=== PATIENT | male | born 1955 | race Caucasian/White ===

== ENCOUNTER 2017-09-30 11:38 | Day surgery (SDC) | payer OTHER ==
[2017-09-30] MEDS ORDERED: LR 1,000 ML IV ONE (11:53)
[2017-09-30] MEDS ORDERED: LIDOCAINE 1% 2 ML INJ ID PRN (11:53)
[2017-09-30] MEDS ORDERED: ceFAZolin 2 GM/SWFI 2 GM/20 ML SYR IVP ONE (11:56)
--- NOTE | 2017-09-30 11:56 | PDHPUP ---
History & Physical Update H&P update statement: This history and physical update is based on an assessment of the patient which was completed after admission or registration (within 24 hours), but prior to the surgery/procedure. Reviewed H&P update: no change in patient's condition since H&P completed H&P changes: no changes
[2017-09-30] MEDS ORDERED: ceFAZolin 2 GM/DEXTROSE 100 ML IV ONE (12:00)
[2017-09-30] MEDS ORDERED: LIDOCAINE 2% 100 MG/5 ML SYR ONE (12:09)
[2017-09-30] MEDS ORDERED: DEXAMETHASONE 4 MG/ML VIAL ONE ×2 (12:09→15:53)
[2017-09-30] MEDS ORDERED: LIDOCAINE 1% 300 MG/30 ML SDV ONE (12:09)
[2017-09-30] MEDS ORDERED: ROPIVACAINE HCL 150 MG/30 ML INJ ONE (12:09)
[2017-09-30] MEDS ORDERED: BACITRACIN 50,000 UNITS/10 ML SYR IRR ONE ×2 (12:10→16:32)
[2017-09-30] MEDS ORDERED: BUPIVACAINE 0.25% 30 ML SDV ONE (12:16)
[2017-09-30] MEDS ORDERED: MIDAZOLAM 2 MG/2 ML VIAL ONE ×2 (14:14→14:40)
[2017-09-30] MEDS ORDERED: MIDAZOLAM 2 MG/2 ML VIAL IVP ONE (14:25)
--- NOTE | 2017-09-30 14:25 | PDANEPAE ---
ANE Past Medical History - Cardiovascular History Hx Hypertension: No Hx Arrhythmias: No Hx Chest Pain: No Hx Coronary Artery / Peripheral Vascular Disease: No Hx CHF / Valvular Disease: No Hx Palpitations: No - Pulmonary History Hx COPD: No Hx Asthma/Reactive Airway Disease: No Hx Recent Upper Respiratory Infection: No Hx Oxygen in Use at Home: No Hx Sleep Apnea: No Sleep Apnea Screening Result - Last Documented: Negative - Neurologic History Hx Cerebrovascular Accident: No Hx Seizures: No Hx Dementia: No Neurologic History Comment: hx of neck fusion. walks with a little limp - Endocrine History Hx Diabetes: Yes Hypothyroid: Yes Hyperthyroid: No Obesity: no Endocrine History Comment: type 1. insulin pump. thyroidectomy d/t thyroid ca - Renal History Hx Renal Disorders: No - Liver History Hx Hepatic Disorders: No - Neurological & Psychiatric Hx Hx Neurological and Psychiatric Disorders: Yes Neurological / Psychiatric History Comment: depression - Cancer History Hx Cancer: Yes Cancer History Comment: thyroid cancer - Congenital Disorder History Hx Congenital Disorders: No - GI History Hx Gastrointestinal Disorders: No Gastrointestinal History Comment: occassional reflux diet controlled - Other Health History Other Health History: psoriasis on scalp - Chronic Pain History Chronic Pain: No - Surgical History Prior Surgeries: neck fusion 2007. thyroidectomy d/t thyroid ca. Hernia surgery 2015. r ight foot surgery ANE Review of Systems Review of Systems: - Exercise capacity METS (RN): 4 METS ANE Patient History - Allergies Allergies/Adverse Reactions: No Known Allergies Allergy (Verified 09/24/17 17:27) - Home Medications Home Medications: Insulin Lispro [Humalog] 04/04/11 [Last Taken 09/30/17 12:00 0.65] Levothyroxine Sodium [Synthroid] 04/04/11 [Last Taken 09/30/17 06:30] - NPO status NPO Since - Liquids (Date): 09/30/17 NPO Since - Liquids (Time): 07:00 NPO Since - Solids (Date): 09/30/17 NPO Since - Solids (Time): 07:00 - Smoking Hx Smoking Status: Never smoked - Family Anes Hx Family Hx Anesthesia Complications: none ANE Labs/Vital Signs - Vital Signs Blood Pressure: 130/84 Heart Rate: 57 Respiratory Rate: 18 O2 Sat (%): 95 Height: 185.42 cm Weight: 84.368 kg ANE Physical Exam - Airway Neck exam: decreased ROM Mallampati Score: Class 2 Mouth exam: normal dental/mouth exam - Pulmonary Pulmonary: no respiratory distress - Cardiovascular Cardiovascular: regular rate and rhythym - ASA Status ASA Status: II ANE Anesthesia Plan Anesthesia Plan: GA w LMA, GA with mask, MAC
[2017-09-30] MEDS ORDERED: PROPOFOL/EMULSION 500 MG/50 ML BOTTLE IV ONE ×2 (14:32→14:46)
[2017-09-30] MEDS ORDERED: LIDOCAINE 2% 5 ML SDV ONE (14:43)
[2017-09-30] MEDS ORDERED: KETAMINE 500 MG/10 ML VIAL ONE (15:24)
[2017-09-30] MEDS ORDERED: ONDANSETRON 4 MG/2 ML VIAL ONE (15:53)
[2017-09-30] MEDS ORDERED: PROPOFOL 200 MG/20 ML VIAL ONE (18:02)
[2017-09-30] MEDS ORDERED: KETOROLAC 30 MG/1 ML SDV ONE (18:25)
[2017-09-30] MEDS ORDERED: fentaNYL 100 MCG/2 ML INJ IVP PRN (18:27)
[2017-09-30] MEDS ORDERED: ONDANSETRON 4 MG/2 ML VIAL IVP PRN (18:27)
[2017-09-30] MEDS ORDERED: HYDROCODONE/APAP 5/325 TAB PO PRN (18:27)
[2017-09-30] MEDS ORDERED: NALOXONE HCL 0.4 MG/ML INJ IVP PRN (18:27)
--- NOTE | 2017-09-30 18:40 | POSTANESTH ---
Post Anesthetic Evaluation Cardiovascular Status: Normal, Stable Respiratory Status: Normal, Stable Level of Consciousness/Mental Status: Can Participate in Eval Pain Control: Adequate, Prn Tx Ordered Nausea/Vomiting Control: Adequate, Prn Tx Ordered Complications Possibly Related to Anesthesia: None Noted
--- NOTE | 2017-09-30 18:42 | POSTOPPROG ---
Post Op Note Date of Operation: 09/30/17 Surgeon: Salina Dodd Instrument Shop Supervisor: Miryam Dodd Anesthesiologist: Anesthesia: Other (Specify) (mac/light general) Pre-op Diagnosis: bunion/HAV, hammertoe 2,3,4 Left Post-op Diagnosis: same Indication: deformity and pain Procedure: double osteotomy HAV repair: first met and juan. HT repair 2,3,4 left foot Findings: rigid deformity. firm bone. Inf/Abcess present in the surg proc area at time of surgery?: No Depth: Deep Incisional (Fascial) EBL: Minimal Complications: none. Specimen(s): none
[2017-09-30] MEDS ORDERED: ENOXAPARIN 40 MG/0.4 ML SYR SC SCH ×2 (18:45→20:00)
[2017-09-30] MEDS ORDERED: D50W 25 GM/50 ML SYR IVP ONE (18:48)
[2017-09-30 19:56] VITALS: BP 131/78
--- NOTE | 2017-10-01 23:37 | GOP ---
[f rep st] OPERATIVE REPORT DATE OF OPERATION: 09/30/2017 SURGEON: Salina Dodd DPM ANESTHESIA: Light general/MAC. ANESTHESIOLOGIST: Martin Aguilar MD. PREOPERATIVE DIAGNOSIS: 1. Bunion, hallux valgus deformity, left foot. 2. Hammertoe deformity with contracture, 2nd digit, left foot. 3. Hammertoe deformity, 3rd digit, left foot. 4. Hammertoe deformity, 4th digit, with contracture, left foot. POSTOPERATIVE DIAGNOSIS: 1. Bunion, hallux valgus deformity, left foot. 2. Hammertoe deformity with contracture, 2nd digit, left foot. 3. Hammertoe deformity, 3rd digit, left foot. 4. Hammertoe deformity, 4th digit, with contracture, left foot. PROCEDURE PERFORMED: 1. Double osteotomy for hallux valgus repair 1st metatarsal osteotomy and screw fixation, left foot. 2. Satish procedure, left foot. 3. Hammertoe repair involving arthrodesis 2nd digit left foot with capsulotomy. 4. Hammertoe repair, 3rd digit, left foot. 5. Hammertoe repair, 4th digit, left foot involving fusion. FINDINGS: INDICATIONS: Abisai went on a trip to [place] in the past few months. Did a lot of walking and reported significant pain with his bunion deformity and overlying blisters and redness. He had photos to show me. In addition, he developed significant pain with his hammertoes. More recently, his 3rd toe getti ng worse. At this time, he elects to proceed with surgery on the left foot. He underwent surgery on t he right foot greater than 2 years ago involving bunion and hammertoe repair and is happy with the re sults. Foot has remained stable. Alignment well maintained. The patient would like to increase his wa lking distances. He is a diabetic and hopes to avoid wounds. At this time, he elects to proceed with surgery on the left foot. Other conservative treatment measures have [place] custom [place]otics [place] [facility] [place] The surgery, however, was delayed. Abisai was informed of the need to be without food or water for grea ter than 7 hour period prior to surgery. He arrived at surgery relating having a full breakfast at 7 o'clock. Therefore, surgery was delayed by 2 hours. DESCRIPTION OF PROCEDURE: Patient was brought into the operating room and placed on the operating ta ble in the supine position. Intravenous/light general administered by the anesthesiologist. A posteri or tibial and peripheral nerve block was obtained utilizing a total of 20 cc of a 1-1 to 1 mix of 1% lidocaine plain, 0.5% ropivacaine, and 0.25% Marcaine plain. The lower extremity was prepped and drap ed in the usual sterile manner. The limb was elevated and exsanguinated with an Esmarch bandage. Ankl e tourniquet inflated to 240 mmHg and the procedure was begun. Noted his blood pressure was high at t he start of the procedure. Attention was directed to our procedure #1 hallux valgus bunion repair, double osteotomy; attention w as directed toward the dorsal medial aspect of the 1st metatarsophalangeal joint where a linear incis ion was created. Incision was carefully deepened with care of neurovascular structures and clamped an d cauterized bleeders. Significant varicosities were noted. They were retracted. A linear capsulotomy was performed exposing the 1st metatarsophalangeal joint and its hypertrophied medial eminence. Util izing a sagittal saw, a portion of the medial eminence was resected. Utilizing the McGlamry elevator, plantar lateral adhesions were released. Then utilizing a K-wire as an axis guide, C-arm, and Joshua osteotomy guide, osteotomy was created, [place] type with a longer dorsal arm. Then along the dorsal s helf, a 2 mm section of bone was resected to allow for easier transpositioning of the capital fragmen t. Note, the joint was very stiff, adhesions present around the medial aspect of the joint. Rotating the capital fragment laterally was a challenge. However, we achieved approximately 6 mm, and utilizin g the C-arm, alignment appeared satisfactory. Temporary fixation achieved with K-wires. Again, C-arm confirming alignment and positioning. Then utilizing the paragon hardware set, distally a 2.5, 16 mm headless screw was placed across the osteotomy site. Second point of fixation was approximately a 2.5 x 18 mm headed screw. Fixation was stable. Medial metaphyseal shelf was resected and segment smoothe d until there were no sharp edges. With loading of the forefoot, satisfactory alignment noted of the 1st metatarsal. However, it was decided to go with the plan of proceeding with the Satish osteotomy sin ce there was still lateral deviation noted of the hallux. Note prior to the osteotomy incision was de epened into the 1st intermetatarsal space and the tight adductor tendon that was attached to the base of the proximal phalanx had been released as well. Satish procedure; incision was carefully extended along the proximal phalanx for the prep for the Satish osteotomy. Incision was carefully deepened with care of neurovascular structures and clamped and caut erized bleeders, and once the lateral aspect of the proximal phalanx was exposed, with care retractin g the extensor hallucis longus tendon, K-wires placed as an axis guide, and then an osteotomy was cre ated with the apex lateral and proximally and the base distal medially. A wedge of bone was resected, and then the hallux was brought over into a straighter position, leaving the lateral hinge intact. F ixation of the Satish osteotomy was achieved with a 2-hole [place] Satish plate secured with a 2.5 x 14 m m locking screw distally and proximally, a 2.5 x 17 mm locking screw. Plate was placed on the medial aspect of the Satish. Fixation noted to be stable. Hallux in excellent alignment. Wound was copiously i rrigated with bacitracin irrigation solution. A T-type capsulotomy was performed. Redundant capsular tissue was resected and then capsular closure achieved with 2-0 and 3-0 Vicryl. Subcutaneous closure with 4-0 Monocryl, and the skin was closed with 4-0 Prolene in a horizontal mattress and simple inter rupted suture manner. C-arm pictures taken throughout the procedure to verify alignment and positioni ng. Hammertoe repair, 2nd digit, left foot. Attention was directed toward the dorsal aspect of the 2nd di git where incision was created along the proximal interphalangeal joint extending to the base of the 2nd digit. Incision was carefully deepened with care of neurovascular structures and clamping and cau terizing bleeders. A transverse tenotomy and capsulotomy performed at the proximal interphalangeal brody int. Capsular tissue reflected off the head of the proximal phalanx and base of the middle phalanx in preparation for fusion. Utilizing sagittal saw, cartilage and bone were resected off the base of the middle phalanx and head of the proximal phalanx. Utilizing [place] K-wire was driven from proximal t o distal through the middle and distal phalanx and then retrograded to the proximal phalanx. C-arm pi ctures taken to verify alignment and positioning. Then utilizing a 2.5 headless screw measuring 46 mm in length, fixation was achieved. Note, a separate stab incision was created distal aspect of the di git to place a screw. With loading of the forefoot, satisfactory alignment noted of the 2nd digit. Th ere was significant tightness noted at the base of the 2nd metatarsophalangeal joint and so the exten sor tendon was released further proximally, and a transverse capsulotomy was performed. Digit placed in improved alignment. Hammertoe repair of the 3rd digit left foot. Procedure performed in identical fashion to the 2nd digi t. A 2.0 mm [place] screw measuring 44 mm in length was placed across the digit for fixation. Hammertoe repair, 4th digit, left foot. Procedure performed in identical fashion to the 2nd digit. A 2.0 [place] screw measuring 36 mm in length headless was placed across the digit for fixation. Procedures were performed in the 2nd, 3rd, 4th digits in assembly line fashion. Closure was performed at the same time. No tourniquet was released after hallux valgus bunion repair procedure was perform ed wet on the lesser digits. There was no inflated tourniquet during this time. The tourniquet did no t provide adequate bloodless field at the time of the hallux valgus repair. Wounds were copiously irr igated with bacitracin irrigation solution. The extensor tendons were closed. /[id number]/MODL
== END 2017-09-30 20:48 | disposition home or self-care (01) ==
LOC: FSGY 11:38
PROVIDERS: ATTEND Podiatrist
PROC: 0QSP04Z Reposition Left Metatarsal with Internal Fixation Device, Open Approach (ICD-10-PCS; principal; 2017-09-30 13:00)
PROC: 0SNQ0ZZ Release Left Toe Phalangeal Joint, Open Approach (ICD-10-PCS; principal; 2017-09-30 13:00)
PROC: 0SGQ04Z Fusion of Left Toe Phalangeal Joint with Internal Fixation Device, Open Approach (ICD-10-PCS; principal; 2017-09-30 13:00)
DX: M20.12 Hallux valgus (acquired), left foot (principal); M20.42 Other hammer toe(s) (acquired), left foot; M24.575 Contracture, left foot; E10.9 Type 1 diabetes mellitus without complications; E03.9 Hypothyroidism, unspecified; M50.30 Other cervical disc degeneration, unspecified cervical region; F32.9 Major depressive disorder, single episode, unspecified; L40.9 Psoriasis, unspecified; Z85.850 Personal history of malignant neoplasm of thyroid; Z96.41 Presence of insulin pump (external) (internal); Z98.1 Arthrodesis status
CPT/HCPCS: C1713; J0690; J1100; J1650; J1885; J2001; J2250; J2405; J2704; J2795